=== PATIENT | female | born 1965 | race Caucasian/White ===

== ENCOUNTER 2017-02-11 22:22 | Emergency (ER) | payer OTHER ==
--- NOTE | ~2017-02-11 | CR21 ---
[facility] A Service [facility] RADIOLOGY TEXT RESULTS PATIENT: JANA SHIRLEY LOCATION: SED : 65 UNIT #: [id number] AGE: [address]: ALFA NINO SEX: F ORDER DR: [id number] [place] [id number] E MR#: [id number] Acc #: [id number] NAME: JANA SHIRLEY. : 1965 SEX: F STUDY DATE/TIME: 02/11/2017 22:45 UNIT: SED ROOM: STUDY DESCRIPTION: CR Ankle Min 3 Views Rt Attending Physician: Alfa Nino Referring Physician: Alfa Nino Ordering Physician: Physician Non-Staff Primary Care Physician: Maryjane Tompkins A.P.R.N. MEDICAL IMAGING REPORT This report is preliminary unless electronic signature is present. EXAM Right ankle, 02/11/2017. INDICATION 51-year-old female with ankle pain and swelling laterally, twisting injury, heard a pop. TECHNIQUE 3 views of the right ankle. COMPARISON STUDIES No comparisons. FINDINGS There is moderate lateral soft tissue swelling. There is a subtle hairline fracture, vertically oriented in the distal aspect of the fibula. Ankle mortise intact. No other evidence of acute fracture. Moderate calcaneal spur. There are degenerative changes in the hindfoot. IMPRESSION At least moderate lateral soft tissue swelling with a subtle hairline vertically oriented fracture through the distal aspect of the fibula, best seen on the frontal view. Dictated by... Vineet Tian M.D. THIS IS AN ELECTRONICALLY VERIFIED REPORT Vineet Tian M.D. at 02/12/2017 9:58 PM JLY/tmw [facility] A Service [facility] RADIOLOGY TEXT RESULTS PATIENT: JANA SHIRLEY LOCATION: SED : 65 UNIT #: [id number] AGE: [address]: ALFA NINO SEX: F ORDER DR: TD: 02/12/2017 13:07 JOB #: [id number] MEDICAL IMAGING REPORT Page 1 of 1
[~2017-02-11 22:22] MED LIST: AMBIEN PO; ASPIRIN ENTERI325 M1 PO; ASPIRIN81 M2 PO; ATIVAN; ATIVAN PO; BACITRACIN30 GM TOP; BACTRIM DS TABL1 TA1 PO; CELEBREX PO; CELEXA PO; CITALOPRAM HBR40 MG PO; CYMBALTA PO; EFFIENT10 MG PO; FLEXERIL; FLEXERIL PO; HAIR, SKIN & N1 EAC1 PO; KEFLEX500 M1 PO; LIDODERM30 EA TOP; LIPITOR; LIPITOR PO; LORTAB 10/500 T1 TAB PO; LORTAB 5/500 TA1 TA1 PO; LOTREL 5-20 MG1 CAP PO; MOBIC PO; NAPROXEN250 MG PO; NEXIUM; NITROGLYGERIN0.4 MG SL; OMEPRAZOLE40 MG PO; PRILOSEC PO; PROBIOTIC1 EAC1 PO; SEROQUEL XR150 MG PO; SEROQUEL300 M1 PO; SIMVASTATIN40 MG PO; TOPROL XL PO; TYLENOL #3 PO; ULTRAM PO; VITAMIN D50000 UNIT PO; VOLTAREN50 MG PO; VOLTAREN75 MG PO
== END 2017-02-12 00:13 | disposition home or self-care (01) ==
LOC: SED 22:22
DX: S82.831A Other fracture of upper and lower end of right fibula, initial encounter for closed fracture (principal); X50.1XXA Overexertion from prolonged static or awkward postures, initial encounter; Y92.009 Unspecified place in unspecified non-institutional (private) residence as the place of occurrence of the external cause; F41.9 Anxiety disorder, unspecified; F32.9 Major depressive disorder, single episode, unspecified; F17.210 Nicotine dependence, cigarettes, uncomplicated
CPT/HCPCS: 29515; 73610; 96372; 99283; J1885